=== PATIENT | male | born 1980 | race African-American/Black ===

== ENCOUNTER 2019-07-25 04:48 | Emergency (ER) | payer MEDICAID ==
[~2019-07-25] VITALS: Ht 177.8 cm; Wt 68.0 kg
[2019-07-25 05:57] LABS: BASOPHILS % 1.4 % (0.0-2.0); EOSINOPHILS % 3.4 % (0.0-5.0); HEMATOCRIT. 46.7 % (42.0-52.0); HEMOGLOBIN. 15.4 g/dL (14.0-18.0); LYMPHOCYTES % 32.6 % (20.0-50.0); MEAN CORPUSCULAR HEMOGLOBIN 27.4 pg (28.0-32.0); MEAN CORPUSCULAR VOLUME 83.2 fL (80.0-94.0); MEAN PLATELET VOLUME 8.1 fl (7.4-10.4); MONOCYTES % 8.6 % (2.0-8.0); PLATELET 292 x1000/uL (130-400); RED BLOOD CELL COUNT 5.61 mill/uL (4.7-6.1); RED CELL DISTRIBUTION WIDTH 14.5 % (11.6-14.6)
[2019-07-25 05:59] LABS: CHLORIDE 109 mEq/L (98-107)
[2019-07-25] MEDS ORDERED: DICYCLOMINE 10 MG/5 ML ORAL SYR PO STA (06:55)
[2019-07-25] MEDS ORDERED: MAGNESIUM/ALUMINUM HYDROXIDE/SIMETHICONE 30ML UDC PO STA (06:55)
[2019-07-25] MEDS ORDERED: FAMOTIDINE 20MG/2ML VIAL IV STA (06:55)
[2019-07-25] MEDS ORDERED: VISCOUS LIDOCAINE 2% 15 ML UDC PO STA (06:55)
[2019-07-25 10:20] VITALS: BP 108/69
== END 2019-07-25 10:20 | disposition home or self-care (01) ==
LOC: ER 04:48
DX: R07.9 Chest pain, unspecified (principal); K21.9 Gastro-esophageal reflux disease without esophagitis; Z87.442 Personal history of urinary calculi
CPT/HCPCS: 36415; 71045; 71275; 80053; 83880; 84484; 85025; 85379; 93005; 96374; 99284; J3490